=== PATIENT | male | born 1955 | race Two or more races ===

== ENCOUNTER 2017-06-01 08:28 | Inpatient (IN) ==
[2017-06-01] MEDS ORDERED: MORPHINE 2 MG/1 ML SYRINGE IV STA (10:27)
[2017-06-01] MEDS ORDERED: ONDANSETRON 4 MG/2 ML VIAL IV STA (10:28)
--- NOTE | 2017-06-01 10:33 | Emergency Department Note ---
Arrival - Arrival Chief Complaint: Abscess Stated Complaint: STAPH INFECTION ED Nursing Triage Note: C/O Having an abscess on the right inner thigh since . states he was in the hospital in [place] two days ago for the same complaint., denies having temp at home., states the area is painful and swelling again, states he has packing in the site., Mode of Arrival: Ambulatory Limitations: No Limitations Source: Patient, RN Notes Reviewed Time Seen by Provider: 06/01/17 10:03 - History of Present Illness HPI Narrative: 61-year-old black male arrives to ED with Chief complaint: abscess/boil Onset (ago): 05/20/2017 Location: Right thigh Context: Patient was working in [place] when the abscess developed. He was hospitalized there for IV antibiotics. He had a I&D at the bedside. He was discharged 2 days ago on p.o. clindamycin 600 mg 3 times daily. He states that the swelling and pain got worse last night. Denies fever. He comes in today for reevaluation. There is packing in the wound which was due to be changed today. Associated symptoms: Pain, swelling, drainage PCP: None PMHx: noncontributory, denies HTN, although his blood pressure in triage was 171 /91. Allergies/Adverse Reactions: Allergies Allergy/AdvReac Type Severity Reaction Status Date / Time No Known Allergies Allergy Unverified 06/01/17 08:36 Home Medications: Home Medications Medication Instructions Recorded Confirmed Type Ciprofloxacin Tab [Cipro Tab] 500 mg PO BID #14 tablet 06/03/17 Rx HYDROcodone/ACETAMIN 7.5-325 1 tablet PO Q4H PRN #30 tablet 06/03/17 Rx [Ralph 7.5-325] Review of System - Review of System Review of Systems: 12 point system: reviewed and no additional remarkable complaints except as stated - Constitutional Constitutional: Absent: anorexia, chills, fever, lethargy - Cardiovascular Cardiovascular: Absent: chest pain, dyspnea, dyspnea on exertion - Respiratory Respiratory: Absent: dyspnea - Gastrointestinal Gastrointestinal: Absent: abdominal pain, nausea, vomiting Skin: Present: as per HPI Medical,Surgical,& Family Hx - Medical History Medical History: noncontributory - Social History Smoking Status: Never smoker Frequency of Alcohol Use: None Type of Drug Use: None Exam Physical Examination: - General General appearance: alert, in no apparent distress - Head Head exam: Present: atraumatic, normocephalic - Chest Chest inspection: Present: normal inspection, symmetric chest wall rise - Respiratory Respiratory exam: Present: normal lung sounds bilaterally. Absent: rales, rhonchi, wheezes - Cardiovascular Cardiovascular exam: Present: regular rate, normal rhythm, normal heart sounds - Extremities Exam Extremities exam: Present: normal inspection, full ROM - Neurological Exam Neurological exam: Present: alert, oriented X3 - Psychiatric Psychiatric exam: Present: normal affect, normal mood - Skin Skin exam: Present: warm, dry, intact. Approximately 12 cm by 8 cm present in right inner thigh. Packing removed from 2 incisions. These are continuing to drain. Area is erythematous and firm to touch. Neurovascular status intact below this. Vital Signs: Vital Signs Temperature 97.3 F L 06/03/17 12:00 Pulse Rate 83 06/03/17 12:00 Respiratory Rate 13 06/03/17 12:00 Blood Pressure 148/81 06/03/17 14:05 O2 Sat by Pulse Oximetry 96 06/03/17 12:00 Course - Consultations Time: 12:15 (Dr. Senia Pride notified of patient presence and status. Will admit for possible surgery in a.m.) Results - Labs CBC & BMP: 06/02/17 07:22 06/01/17 10:36 Lab Results: I have reviewed the patients labs - Impressions CT right thigh:There is a 15 mm gas density collection in the soft tissues of the anterior medial right thigh with surgical incision/fistula extending from this area to the skin surface. There is strandy and hazy inflammatory change in the adjacent subcutaneous fat. There is no nelida fluid-filled abscess of significance. There is mild right inguinal lymphadenopathy. There is no abnormality of the adjacent musculature. There is normal enhancement of the major arterial vascular structures. There is no acute bony abnormality. Impression: Post debridement changes of the soft tissue abscess in the anterior medial right thigh. The residual abscess cavity contains gas density but no significant residual fluid. There is some surrounding inflammatory change of the adjacent subcutaneous fat. There is some mild right inguinal lymphadenopathy. There is no evidence to suggest adjacent muscular or bony involvement - Diagnostic Findings Procedure: CT: report reviewed by me Disposition Clinical Impression: Cellulitis of leg, right Case discussed with: patient Disposition: Still a Patient Condition: Stable New Prescriptions: Rx's Medication Instructions Recorded Ciprofloxacin Tab [Cipro Tab] 500 mg PO BID #14 tablet 06/03/17 HYDROcodone/ACETAMIN 7.5-325 1 tablet PO Q4H PRN #30 tablet 06/03/17 [Ralph 7.5-325] Time of Disposition: 12:15 (Admit. Length of stay increased due to 1 hr & [address] order to results.)
[2017-06-01] MEDS ORDERED: MORPHINE 2 MG/1 ML SYRINGE ONE (10:50)
[2017-06-01] MEDS ORDERED: ONDANSETRON 4 MG/2 ML VIAL ONE (10:54)
[2017-06-01 11:01] LABS: Basophils # 0.1 10*3/uL (0.0-0.2); Eosinophils # 0.1 10*3/uL (0.0-0.87); Eosinophils % 2.2 % (0.00-10.9); Hematocrit 41.6 VOL% (42.0-52.0); Hemoglobin 14.4 GM/DL (14.0-18.0); Immature Granulocytes % 2.4 %; Immature Granulocytes Absolute 0.14 #; Lymphocytes % 34.5 % (21.2-54.2); Mean Corpuscular HGB Conc 34.6 GM/DL (32-36); Mean Corpuscular Hemoglobin 32 PG (27-34); Mean Corpuscular Volume 92.7 FL (87-102); Mean Platelet Volume 8.9 FL (9.6-12.0); Monocytes # 0.7 10*3/uL (0.11-0.8); Monocytes % 11.2 % (1.7-12.7); Neutrophils # 2.8 10*3/uL (1.4-7.4); Neutrophils % 48.7 % (38.7-73.9); Platelet Count 358 T/CUMM (130-400); Red Blood Count 4.49 MC/CUMM (3.8-5.5); White Blood Count 5.8 T/CUMM (4-12)
[2017-06-01 11:23] LABS: Calcium 8.8 MG/DL (8.5-10.1); Osmolality,Calculated 275.5 MOS/KG (273-304); Potassium 4.6 MMOL/L (3.5-5.1)
--- NOTE | 2017-06-01 11:57 | CT Report ---
History: Soft tissue abscess right thigh Date: 06/01/2017 Study: CT right femur with IV contrast Comparison exam: No previous Thin spiral CT sections were obtained through the right femur with 100 mL Omnipaque 350 IV contrast. Multiplanar reconstruction images are also evaluated. This CT exam was performed using one or more the following dose reduction techniques: Automated exposure control, adjustment of the MA and/or KV according to patient size, or use of iterative reconstruction technique. There is a 15 mm gas density collection in the soft tissues of the anterior medial right thigh with surgical incision/fistula extending from this area to the skin surface. There is strandy and hazy inflammatory change in the adjacent subcutaneous fat. There is no nelida fluid-filled abscess of significance. There is mild right inguinal lymphadenopathy. There is no abnormality of the adjacent musculature. There is normal enhancement of the major arterial vascular structures. There is no acute bony abnormality. Impression: Post debridement changes of the soft tissue abscess in the anterior medial right thigh. The residual abscess cavity contains gas density but no significant residual fluid. There is some surrounding inflammatory change of the adjacent subcutaneous fat. There is some mild right inguinal lymphadenopathy. There is no evidence to suggest adjacent muscular or bony involvement PROCEDURE INTERPRETED AT [facility] DEPARTMENT OF RADIOLOGY Final Report Signed by: Dr. Odalis Rivera
[2017-06-01] MEDS ORDERED: BISACODYL 5 MG TABLET PO PRN (12:22)
[2017-06-01] MEDS ORDERED: ONDANSETRON 4 MG/2 ML VIAL IV PRN (12:22)
[2017-06-01] MEDS ORDERED: BISACODYL 10 MG SUPP RECTAL PRN (12:22)
[2017-06-01] MEDS ORDERED: IBUPROFEN 400 MG TABLET PO PRN (12:22)
[2017-06-01] MEDS ORDERED: ALUMINUM/MAGNES/SIMETH MAX STR 30 ML UDCUP PO PRN (12:22)
[2017-06-01] MEDS ORDERED: KETOROLAC 15 MG/1 ML VIAL IV PRN (12:22)
[2017-06-01] MEDS ORDERED: ACETAMINOPHEN 325 MG TABLET PO PRN (12:22)
--- NOTE | 2017-06-01 15:20 | General Surg History&Physical ---
Assessment and Plan - Time spent with patient Time spent with patient: Less than 30 minutes (1) Cellulitis of leg, right Status: Acute Assessment and plan: He has a well-defined area of either necrosis or retained abscess in his right inner thigh. I think that this needs further incision and drainage. Procedure and risk of been explained and he wishes to proceed. We will continue IV antibiotics. We will hold him n.p.o. after midnight. Current Visit: Yes History of Present Illness Chief complaint: Abscess right thigh History of present illness: Mr. Pineda is a 61 year old male Who for about 2 weeks has had an infection in his right thigh. He was hospitalized in [place] where incision and drainage was carried out probably about a week or so ago and he was treated with IV antibiotics. He was discharged about 3 days ago and noticed him having increased pain and swelling between his 2 incisions in the last 24 hours or so. He has not had fever or chills. He has had increased swelling and pain. This is worse when he moves his leg. It feels better when he lays still. He came to the emergency room today and the emergency department obtained a CT scan did not show a large fluid collection. There is some gas within this subcu soft tissues of his thigh. Home Medications Medication Instructions Recorded Confirmed Type Clindamycin Cap [Cleocin Cap] 300 mg PO TID 06/01/17 06/01/17 History Allergies Allergy/AdvReac Type Severity Reaction Status Date / Time No Known Allergies Allergy Unverified 06/01/17 08:36 Medical,Surgical,& Family Hx - Medical History HEENT: History of: Dental Problems (Upper dentures) Gastrointestinal: History of: GERD (Occasional acid reflux) - Surgical History Surgical History: noncontributory Abdominal Surgeries: Patient denies: Abdominal Surgery - Family History Family History: Reports;: Family Diabetes (Mother) - Social History Smoking Status: Never smoker Frequency of Alcohol Use: None Type of Drug Use: None Exam - Constitutional Vitals: Period Temp Pulse Resp BP Sys/Arroyo Pulse Ox Last 24 Hr 98.0 F-98.8 F 64-86 18-20 137-171/71-94 98-99 General appearance: no acute distress - Head Head exam: Present: normocephalic - Eye Eye exam: Absent: scleral icterus - ENT Mouth exam: Present: normal voice - Respiratory Respiratory exam: Present: clear to auscultation bilaterally. Absent: accessory muscle use - Cardiovascular Cardiovascular exam: Present: RRR - GI/Abdominal GI/Abdominal exam: Present: soft. Absent: distended, tenderness - Extremities Exam Extremities exam: Present: other (There is about a 10 cm area of induration and tenderness along the inner right thigh. This is in between his 2 incisions. There is no crepitus. There is no skin necrosis. There is really no surrounding cellulitis outside this 10 cm indurated area). Absent: edema - Constitutional Constitutional: Absent: anorexia, chills, fever(s), weight loss - Cardiovascular Cardiovascular: Absent: chest pain at rest, chest pain with activity, dyspnea, dyspnea on exertion, syncope - Respiratory Respiratory: Absent: dyspnea, hemoptysis, dyspnea on exertion - Gastrointestinal Gastrointestinal: Absent: abdominal pain, hematemesis, hematochezia, nausea, vomiting - Genitourinary Genitourinary: Absent: hematuria - Musculoskeletal Musculoskeletal: Absent: back pain - Neurological Neurological: Absent: focal weakness, syncope Hematologic/Lymphatic: Absent: easy bleeding, easy bruising Quality Measures - VTE Contraindication to Pharmacological VTE Prophylaxis: Clinical assessment deems Pt at low risk, no prophalaxis needed Results - Labs CBC & BMP: 06/01/17 10:36 06/01/17 10:36 Lab Results: I have reviewed the past 24 hour labs - Diagnostic Findings Procedure: CT: image reviewed by me, report reviewed by me
[2017-06-01] MEDS: DEXTROSE 5% LACTATED RINGERS 1,000 ML IV SCH (15:43)
[2017-06-01] MEDS: PIPERACILLIN/TAZOBACTAM 3,375 MG in SODIUM CHLORIDE 0.9% 100 ML IV SCH (15:48)
[2017-06-01] MEDS: ENOXAPARIN 40 MG/0.4 ML SYRINGE SUBCUT SCH (16:43)
[2017-06-01] MEDS: MORPHINE 2 MG/1 ML SYRINGE IV PRN (16:45)
[2017-06-01] MEDS: DOCUSATE SODIUM 100 MG CAPSULE PO SCH (21:22)
[2017-06-02] MEDS: PIPERACILLIN/TAZOBACTAM 3,375 MG in SODIUM CHLORIDE 0.9% 100 ML IV SCH ×3 (00:18→15:53)
[2017-06-02] MEDS: DEXTROSE 5% LACTATED RINGERS 1,000 ML IV SCH ×4 (02:11→12:46)
[2017-06-02 08:04] LABS: Basophils # 0.1 10*3/uL (0.0-0.2); Basophils % 0.9 % (0.0-0.8); Eosinophils # 0.2 10*3/uL (0.0-0.87); Eosinophils % 3.2 % (0.00-10.9); Hematocrit 39.7 VOL% (42.0-52.0); Hemoglobin 13.5 GM/DL (14.0-18.0); Immature Granulocytes % 1.9 %; Lymphocytes % 37.9 % (21.2-54.2); Mean Corpuscular Hemoglobin 32 PG (27-34); Mean Corpuscular Volume 94.3 FL (87-102); Mean Platelet Volume 8.9 FL (9.6-12.0); Monocytes # 0.6 10*3/uL (0.11-0.8); Monocytes % 10.4 % (1.7-12.7); Neutrophils # 2.4 10*3/uL (1.4-7.4); Neutrophils % 45.7 % (38.7-73.9); Platelet Count 325 T/CUMM (130-400); Red Blood Count 4.21 MC/CUMM (3.8-5.5); Red Cell Distribution Width 11.9 % (9.3-17.3); White Blood Count 5.3 T/CUMM (4-12)
[2017-06-02] MEDS: PANTOPRAZOLE 40 MG TABLET PO SCH (09:13)
[2017-06-02] MEDS: DOCUSATE SODIUM 100 MG CAPSULE PO SCH ×2 (09:14→20:14)
[2017-06-02] MEDS ORDERED: LIDOCAINE 1%/EPI INJ 20 ML VIAL ONE (09:42)
[2017-06-02] MEDS ORDERED: BUPIVACAINE MPF 0.25% /EPI 30 ML VIAL ONE (09:42)
--- NOTE | 2017-06-02 10:06 | Operative Note ---
Date of procedure: 06/02/17 Pre-op diagnosis: Recurrent necrotic abscess right anterior thigh Post-op diagnosis: same Procedure: Excisional debridement of subcutaneous tissue right anterior thigh 5 x 10 cm Findings and technique: After informed consent was obtained patient was brought the operating room placed in supine position. After IV sedation was administered the patient's right thigh was prepped and draped in usual sterile fashion. There were 2 previous we made incisions. Larger one was medial. Local anesthesia was infiltrated and this was extended laterally towards the other incision for a couple of centimeters. I was able to insert retractors into this incision can see her left and necrotic debris as well as necrotic subcutaneous tissue. This was sharply debrided away with a #15 blade and with Metzenbaum scissors. This tissue was removed and irrigated. I then turned attention to the other incision which was more lateral and large this as well and inserted retractors once again and debrided through this incision. Both of these incisions were connected within the subcutaneous space but a large bridge of skin was left between. This cavity was irrigated out and good hemostasis obtained. It was then packed open with iodoform gauze. Anesthesia: MAC, local Surgeon / Physician: Abdulkadir Conn III. Estimated blood loss: minimal Specimens: other (Cultures and debrided tissue) Condition: stable Disposition: PACU Results - Labs CBC & BMP: 06/02/17 07:22 06/01/17 10:36 Discharge Plan - Discharge Medications No Action Clindamycin Cap [Cleocin Cap] 300 mg PO TID - Follow Up or Referral - Forms/Instructions
[2017-06-02] MEDS ORDERED: PROPOFOL 200 MG/20 ML VIAL IV ONE (10:11)
[2017-06-02] MEDS ORDERED: fentaNYL 100 MCG/2 ML VIAL ONE (10:11)
[2017-06-02] MEDS ORDERED: MIDAZOLAM 2 MG/2 ML VIAL ONE (10:11)
[2017-06-02] MEDS: MORPHINE 2 MG/1 ML SYRINGE IV PRN ×3 (11:13→20:13)
--- NOTE | 2017-06-02 11:18 | Anesthesia Post-Op ---
Anesthesia Post OP - Post Ansesthetic Evaluation Patient seen in post op: Yes Resp: within normal limits CV: within normal limits Mental: within normal limits Temp: within normal limits [id number]: within normal limits Nausea and Vomiting: within normal limits Pain: within normal limits
--- NOTE | 2017-06-02 11:36 | XRay Report ---
History: Shortness of breath Date: 06/02/2017 Study: Chest x-ray PA and lateral Comparison exam: No previous chest x-ray available The cardiac silhouette is not enlarged. There is no mediastinal mass. There is mild aortic arch calcification. The pulmonary vasculature is not engorged. There is no layering pleural effusion. The lungs are well-expanded and clear. There is moderate thoracic spondylosis. Impression: No acute cardiopulmonary process PROCEDURE INTERPRETED AT [facility] DEPARTMENT OF RADIOLOGY Final Report Signed by: Dr. Odalis Rivera
[2017-06-02] MEDS: ENOXAPARIN 40 MG/0.4 ML SYRINGE SUBCUT SCH (15:52)
[2017-06-03] MEDS: PIPERACILLIN/TAZOBACTAM 3,375 MG in SODIUM CHLORIDE 0.9% 100 ML IV SCH ×2 (00:14→08:11)
[2017-06-03] MEDS: DEXTROSE 5% LACTATED RINGERS 1,000 ML IV SCH ×3 (05:10→13:35)
[2017-06-03] MEDS: DOCUSATE SODIUM 100 MG CAPSULE PO SCH (08:11)
[2017-06-03] MEDS: PANTOPRAZOLE 40 MG TABLET PO SCH (08:11)
[2017-06-03] MEDS: MORPHINE 2 MG/1 ML SYRINGE IV PRN (10:30)
--- NOTE | 2017-06-03 10:35 | Discharge Summary ---
Hospital Course - Hospital Course Hospital Course: Patient is a 61-year-old male who is admitted for repeat I&D of a right thigh abscess which failed clindamycin previously treated facility in [place]. Patient underwent excisional debridement of the right thigh wound with cultures obtained. Gram-positive cocci preliminarily growing at the time of discharge. He responded well to Zosyn and the procedure. He was discharged home with ciprofloxacin orally as well as oral analgesics. Will follow up on the final cultures. He is provider follow-up appointment Dr. Senia ROLDAN. Home health services were arranged for wound care. He was discharged home in good condition. Diagnosis - Discharge Diagnosis (1) Abscess of right thigh Status: Acute (2) Cellulitis of leg, right Status: Acute Specialty Discharge - Follow Up or Referrals Follow up with: Abdulkadir Conn III., MD [Physician] - 06/10/17 10:30 am Discharge Plan - Discharge Data Disposition: Home Health Service Condition at Discharge: Stable Discharge Diet: advance to your usual diet Activity: other (Avoid vigorous activity. Avoid excessive perspiration.) Driving: other (No driving while taking narcotic) Contact your physician if you experience:: fever over 101, Redness or swelling, Nausea/Vomiting, Shortness of breath, Bleeding, pain uncontrolled by pain medications Wound / Dressing Care Instructions: Keep wounds clean dry and covered. Wound care daily: Remove packing; irrigate with saline; loosely repacked with 1/2 inch iodoform gauze; cover with 4 x 4's, ABD pad, and tape. - Discharge Medications New Ciprofloxacin Tab [Cipro Tab] 500 mg PO BID #14 tablet HYDROcodone/ACETAMIN 7.5-325 [Gail 7.5-325] 1 tablet PO Q4H PRN #30 tablet PRN Reason: Pain Moderate To Severe (4-10) Discontinued Clindamycin Cap [Cleocin Cap] 300 mg PO TID - Follow Up or Referral Follow Up: Abdulkadir Conn III., MD [Physician] - 06/10/17 10:30 am - Forms/Instructions Instructions: Ciprofloxacin (By mouth), Hydrocodone/Acetaminophen (By mouth), How to Take a Blood Pressure (DC), Abscess (GEN) Additional Discharge Instructions: Hospital f/u with PCP in 7-10 days. Exam - Constitutional Vitals: Period Temp Pulse Resp BP Sys/Arroyo Pulse Ox Last 24 Hr 97.1 F-98.2 F 70-81 14-20 123-189/69-93 96-100 General appearance: no acute distress - Respiratory Respiratory exam: Present: clear to auscultation bilaterally - Cardiovascular Cardiovascular exam: Present: regular rate and rhythm - GI/Abdominal GI/Abdominal exam: Present: normal bowel sounds, soft. Absent: distended, tenderness - Extremities Exam Extremities exam: Present: other (Packing was removed and wounds with out purulence evident. No expressible drainage. Minimal residual erythema. Wound was irrigated and repacked with 1/2 inch iodoform gauze and clean dry dressing applied.). Absent: calf tenderness, edema - Neurological Exam Neurological exam: Present: alert, oriented X3 ( No evidence of wound edge necrosis or advancing cellulitis) - Psychiatric Psychiatric exam: Present: normal affect, normal mood Discharge Results Procedures and tests throughout hospitalization: Pending Orders 06/01/17 10:36 Blood Culture Stat 06/02/17 Anaerobic Culture Routine Tissue (Biopsy) Culture and GS Routine Blood cultures: Preliminarily no growth at 1 day Right thigh tissue culture: Gram-positive cocci Labs on day of discharge: Preliminary micro results at discharge 06/02/17 Unknown Tissue Culture - Preliminary Thigh - Right Gram Positive Cocci 06/01/17 10:36 Blood Culture - Preliminary Blood No growth at 1 day 06/01/17 10:36 Blood Culture - Preliminary Blood No growth at 1 day - Imaging and Cardiology Procedure: CT: image reviewed by me, report reviewed by me (femur) DS: Provider Date of admission: 06/01/17 12:16 Primary care physician: . No PCP Attending physician on admission: Abdulkadir Conn III., Consults: 06/01/17 14:58 Consult to Pastoral Services [CONS] Routine Comment: Pastoral Screen: Request Travograph Operator Visit Discharging clinician: Alessandra Ruggiero PA-C
--- NOTE | 2017-06-03 13:56 | General Surgery Progress Note ---
Assessment and Plan (1) Cellulitis of leg, right Status: Acute Assessment and plan: He has a well-defined area of either necrosis or retained abscess in his right inner thigh. I think that this needs further incision and drainage. Procedure and risk of been explained and he wishes to proceed. We will continue IV antibiotics. We will hold him n.p.o. after midnight. 06/03: He is doing well and feels much better. I think he should be fine for outpatient treatment. I will see him back in the clinic in the next week or so. We will discharge him on p.o. antibiotics. Current Visit: Yes Subjective Patient reports: Present: feels better, pain is less. Absent: fever Exam - Constitutional Vitals: Period Temp Pulse Resp BP Sys/Arroyo Pulse Ox Last 24 Hr 97.2 F-98.2 F 71-83 13-20 139-189/72-93 96-100 General appearance: no acute distress - Respiratory Respiratory exam: Absent: accessory muscle use - Extremities Exam Extremities exam: Absent: edema Results - Labs CBC & BMP: 06/02/17 07:22 06/01/17 10:36 Quality Measures - VTE Contraindication to Pharmacological VTE Prophylaxis: Clinical assessment deems Pt at low risk, no prophalaxis needed Specialty Discharge - Follow Up or Referrals Follow up with: Abdulkadir Conn III., MD [Physician] - 06/10/17 10:30 am
[2017-06-03 14:06] VITALS: BP 148/81
== END 2017-06-03 15:41 | disposition home health service (06) | DRG 572 ==
LOC: N.ED 08:28 → N.EDINP 12:16 → N.3E 13:17
PROVIDERS: ADMIT Surgery; ATTEND Surgery